=== PATIENT | female | born 1965 | race Caucasian/White ===

== ENCOUNTER 2018-04-14 05:40 | Day surgery (SDC) | payer OTHER ==
[~2018-04-14] VITALS: Ht 170.2 cm; Wt 72.6 kg
[2018-04-14] MEDS ORDERED: CEFAZOLIN SOD 1 GM/ ISO 50 ML PREMIX IV ONE (07:00)
[2018-04-14] MEDS ORDERED: LR 1,000 ML IV SCH (09:13)
[2018-04-14] MEDS ORDERED: MORPHINE 4 MG/ML INJ. SYRINGE IVP PRN ×3 (09:15)
[2018-04-14] MEDS ORDERED: METOCLOPRAMIDE HCL 10 MG/2 ML VIAL IVP PRN (09:15)
[2018-04-14] MEDS ORDERED: OXYCODONE/ACETAMINOPHEN 5-325 TABLET PO PRN (09:45)
[2018-04-14] MEDS ORDERED: PROMETHAZINE HCL 25 MG/ML AMP IM PRN (09:45)
[2018-04-14] MEDS ORDERED: ONDANSETRON HCL 4 MG/2 ML VIAL IVP PRN (09:45)
[2018-04-14] MEDS ORDERED: HYDROmorphone 2 MG TAB PO PRN (09:45)
[2018-04-14] MEDS ORDERED: MORPHINE 4 MG/ML INJ. SYRINGE ONE (10:31)
[2018-04-14 11:30] VITALS: BP_SYST 97
[2018-04-14] MEDS ORDERED: ONDANSETRON HCL 4 MG/2 ML VIAL ONE (13:19)
== END 2018-04-14 17:20 | disposition home or self-care (01) ==
LOC: SDS 05:40 → SMU 05:40 → SDS 17:20
PROVIDERS: ATTEND Obstetrics & Gynecology
DX: N80.0 Endometriosis of uterus (principal); E03.9 Hypothyroidism, unspecified; J30.9 Allergic rhinitis, unspecified; Z79.899 Other long term (current) drug therapy; E55.9 Vitamin D deficiency, unspecified; Z98.890 Other specified postprocedural states; E66.3 Overweight
CPT/HCPCS: 36415; 86886; 86900; 86901; 88307; C1727; E0190; J0690; J2270; J2405; J7120